=== PATIENT | female | born 1995 | race Two or more races ===

== ENCOUNTER 2023-03-14 19:02 | Emergency (ER) | payer OTHER, SELFPAY ==
[2023-03-14] VITALS (11 sets, daily range): BP systolic 83–132; BP diastolic 28–77; PULSE 59–95; RESP 18–21; TEMP 36.7; O2SAT 98–100; BMI 42.5
--- NOTE | 2023-03-14 19:07 | ECG_ITS ---
Test Reason : SYNCOPE Blood Pressure : / mmHG Vent. Rate : 058 BPM Atrial Rate : 058 BPM P-R Int : 122 ms QRS Dur : 088 ms QT Int : 412 ms P-R-T Axes : 020 026 023 degrees QTc Int : 404 ms Sinus bradycardia Otherwise normal ECG No previous ECGs available Referred By: Generic ED Physician Electronically Signed By:Ministerio Davila
[2023-03-14 19:28] LABS: Glucose, Whole Blood 86 mg/dL (60-115)
--- NOTE | 2023-03-14 19:52 | PC.NURSE ---
orthostatic vital signs obtained and documented
--- NOTE | 2023-03-14 21:05 | ED_ITS ---
HPI - Dizziness General Chief Complaint: Syncope Stated Complaint: syncope Time Seen by Provider: 03/14/23 19:51 Source: patient and other Mode of arrival: EMS History of Present Illness HPI Narrative: 27-year-old female who states that she was at home and sitting a on a picnic bench with a friend of hers when she began to feel nauseous and then slumped forward and then her girlfriend lowered her on to the picnic bench. Patient does not remember any of the events and denies any head strike. She denies any recent history of fever, chills, GI or symptoms but states that she has a history of bipolar in his recently had an increase her medication and smokes marijuana at baseline. At this time patient denies any symptoms. Related Data Allergies Allergy/AdvReac Type Severity Reaction Status Date / Time No Known Allergies Allergy Unverified 06/03/20 19:35 [No Known Allergies*] Review of Systems Review of Systems: Pertinent positives and negatives as stated in HPI PMFSH Past Medical History Source: nursing notes reviewed Social History Social History Alcohol intake: never Smoked in Last 30 Days: No Use of substances other than those prescribed or required for medical reasons: Yes Substance Use Type: Marijuana Substance Use Frequency: Daily Substance Use Frequency Other:: last marijuna use this afternoon 03/14 a few hrs before i fainted. Last Used Substance: Hours (ago) Advance Directives: No Advance Directives Information Provided: Yes Physical Exam Vital Signs: Vital Signs: Last Vital Signs Temp 98.1 F 03/14/23 19:23 Pulse 95 03/14/23 20:21 Resp 21 H 03/14/23 20:21 BP 98/52 L 03/14/23 20:21 Pulse Ox 100 03/14/23 20:21 O2 Del Method Room Air 03/14/23 20:21 BMI result Body Mass Index 42.5 VITAL SIGNS: Reviewed. GENERAL: Well developed, well nourished, in no acute distress. HEAD: Normocephalic/atraumatic EYES: PERRLA, EOMI EARS: Ext canals without abnormality NOSE: Nares patent bilateral OROPHARYNX: no oral lesions noted, posterior pharynx clear NECK: Supple, no adenopathy LUNGS: Normal breath sounds. No adventitious sounds or accessory muscle use. SpO2<100> CARDIOVASCULAR: Regular rate and rhythm without noted murmurs ABDOMEN: Soft, non-tender, non-distended with bowel sounds. MUSCULOSKELETAL: No tenderness, deformities, or effusions noted on gross inspection. EXTREMITIES: No cyanosis, clubbing or edema. SKIN: Inspection of the skin reveals no rashes NEUROLOGIC: Alert and oriented x 4. Strength and sensation to light touch were grossly intact x 4, cranial nerves 2-12 are grossly intact. Medical Decision Making Medical Decision Making MDM Narrative: 27-year-old female with vasovagal response, no suggestion of infectious etiology, EKG negative for evidence of arrhythmia, orthostatics are negative but patient has had recent change in bipolar medication and has continued to use the same amounts of marijuana and there was likely an interaction that resulted in the syncopal episode. Patient is nonfocal. Patient is completely asymptomatic at this time, U preg and urinalysis are negative. All results discussed with her at bedside she is otherwise stable for discharge to home. Differential Diagnosis Please see the discussion above Admission/Observation Consideration of admission/observation: Escalation of care including admission/observation considered If arrhythmia had been found Lab Data Please see the discussion above Labs: Lab Results 03/14/23 03/14/23 03/14/23 Range/Units 19:14 21:27 21:27 POC Glucose 86 (60-115) mg/dL Urine Color Yellow Urine Appearance Cloudy Urine pH 6.5 (5.0-9.0) Ur Specific [place] 1.020 (1.005-1.025) Urine Protein Negative (Neg-Trace) mg/dL Urine Glucose (UA) Negative (Negative) mg/dL Urine Ketones Negative (Negative) mg/dL Urine Blood Negative (Negative) Urine Nitrite Negative (Negative) Ur Leukocyte Esterase Negative (Negative) Urine Test NEGATIVE (NEGATIVE) Independent Interpretation I performed an independent interpretation of an: EKG Interpretation: Sinus bradycardia, HR-58, no STEMI, [place]/QRS/QTC are within normal limits. Discharge Plan Discharge Clinical Impression: Vasovagal syncope, Adverse drug-drug interaction Patient Disposition: Home, Self-Care Instructions: Syncope (ED) Additional Instructions: 1. Resume all home medications.
[2023-03-14 21:38] LABS: Appearance Urine Cloudy; Color Urine Yellow; Glucose Urine UA Negative (Negative); Leukocyte Esterase Urine Negative (Negative); Nitrite Urine Negative (Negative); PH 6.5 (5.0-9.0); Urine Blood Negative (Negative); Urine Ketones Negative (Negative); Urine Protein Negative (Neg-Trace)
--- NOTE | 2023-03-14 21:39 | PC.NURSE ---
pt continues w/no syncope. talking well w/o distress. +CSM. +vs. urine sent
[2023-03-14 21:46] LABS: UPreg QC Valid YES; Urine Pregnancy NEGATIVE (NEGATIVE)
== END 2023-03-14 23:19 | disposition home or self-care (01) ==
PROVIDERS: Emergency Provider Student in an Organized Health Care Education/Training Program
DX: R55 Syncope and collapse (principal); T40.715A Adverse effect of cannabis, initial encounter; Y92.007 Garden or yard of unspecified non-institutional (private) residence as the place of occurrence of the external cause
CPT/HCPCS: 81003; 81025; 82947; 93005; 99283; 99285